=== PATIENT | male | born 1995 | race Caucasian/White ===

== ENCOUNTER 2017-01-22 23:08 | Emergency (ER) | payer BC ==
[~2017-01-22] VITALS: Ht 167.6 cm; Wt 56.7 kg
[2017-01-22 23:34] VITALS: BP 137/93
== END 2017-01-23 00:12 | disposition home or self-care (01) ==
LOC: ER 23:15
DX: Z00.8 Encounter for other general examination (principal); F17.200 Nicotine dependence, unspecified, uncomplicated; R00.2 Palpitations
CPT/HCPCS: 93005; 99283; A4606; Z7610